=== PATIENT | male | born 1975 | race Hispanic/Latino ===

== ENCOUNTER 2020-04-01 19:59 | Emergency (ER) | payer OTHER ==
[2020-04-01] MEDS ORDERED: Ketorolac Tromethamine 30 MG/ML VIAL ONE (21:15)
[2020-04-01 21:24] LABS: Bacteria/HPF None Seen HPF (None Seen); Bilirubin Negative (Negative); Blood, Urine 1+ (Negative); Clarity Clear (Clear); Glucose, Urine (Dipstick) Normal (Negative); Ketone, Urine Negative (Negative); Leukocyte Negative Leu/uL (Negative); Nitrite Negative (Negative); Protein, Urine (Dipstick) Negative (Neg-Trace); RBC/HPF 0-3 HPF (0-3); Specific Gravity, Urine 1.007 (1.002-1.036); Squamous Epithelial None Seen HPF (0-3); Urobilinogen Normal mg/dL (Less than 2); WBC/HPF 0-3 HPF (0-3); pH, Urine 5.5 (5.0-9.0)
--- NOTE | 2020-04-01 21:54 | CT ---
CT ABDOMEN AND PELVIS WITHOUT IV CONTRAST: 04/01/20 INDICATIONS: Dysuria and hematuria. Low back pain. Urinary stone protocol was requested. FINDINGS: The lung bases are clear. Liver, spleen, pancreas, unremarkable. Post cholecystectomy changes. Postop changes involving the stomach suggesting a sleeve type procedure. Adrenal glands normal. Review of the kidneys showed no evidence of hydronephrosis or urinary calculus. There is a complex exophytic mass from the anterior mid left kidney measuring 2.3 cm. The densities o f this mass are higher than expected for a simple cyst measuring in the 18 Hounsfield unit range. Thi s will need to be followed. Suggest correlation with renal ultrasound electively for further characte rization. Urinary tract otherwise unremarkable. No hydronephrosis. Ureters are normal. Urinary bladder unremark able. Bowel loops appear unremarkable. Appendix appears normal. Aorta and retroperitoneum unremarkabl e. Osseous structures unremarkable. IMPRESSION: 1. No acute process. No evidence of urinary calculus or obstruction. 2. A complex exophytic lesion from the left kidney measuring 2.3 cm. Elective follow-up is recom mended with ultrasound and/or MRI with and without contrast to further characterize this lesion. POS: [facility]
[2020-04-02 14:14] LABS: SARS-CoV-2 MS2 Positive; SARS-CoV-2 N Gene Negative; SARS-CoV-2 S Gene Negative; SARS-CoV-2 by NAA Not Detected (NotDetected); SARS-CoV-2 orf1ab Negative
== END 2020-04-01 22:47 ==
LOC: ERS 19:59
DX: N28.9 Disorder of kidney and ureter, unspecified (principal); Z20.828 Contact with and (suspected) exposure to other viral communicable diseases; Z87.891 Personal history of nicotine dependence
CPT/HCPCS: 74176; 81003; 81015; 87635; 96372; J1885; U0003